=== PATIENT | female | born 1990 | race Caucasian/White ===

== ENCOUNTER → 2020-01-24 15:48 | Outpatient (CLI) | payer OTHER, SELFPAY ==
[2020-01-26 11:11] LABS: FSH 5.8 mIU/mL (.); LH 6.9 mIU/mL (.); Prolactin 11.3 ng/mL (4.8-23.3)
== END ==
PROVIDERS: Visit Provider Obstetrics & Gynecology
DX: N64.52 Nipple discharge (principal)
CPT/HCPCS: 36415; 83001; 83002; 84146; 84443

== ENCOUNTER → 2020-01-29 14:56 | Outpatient (CLI) | payer OTHER, SELFPAY ==
--- NOTE | 2020-01-29 14:56 | US_ITS ---
PROCEDURE: US BREAST RT COMPLETE CLINICAL INDICATION: US right breast-nipple discharge, yellowish in color COMPARISON: None FINDINGS: Targeted scanning in the circumareolar region around the nipple shows no abnormal dilated ducts or suspicious cystic or solid mass or evidence of architectural distortion. There couple normal appearing nodes in the axilla. IMPRESSION: Unremarkable targeted ultrasound right breast Dictated by: Dr. Pablo Guzman MD 02/01/2020 12:[address] Pablo Guzman MD in [place] 02/01/2020 12:25
== END ==
PROVIDERS: PCP Emergency Medicine; Visit Provider Obstetrics & Gynecology
DX: N64.52 Nipple discharge (principal)
CPT/HCPCS: 76641

== ENCOUNTER 2020-03-20 17:22 | Emergency (ER) | payer OTHER, SELFPAY ==
[2020-03-20 17:43] VITALS: BP 137/89; PULSE 87; RESP 16; TEMP 37.2; O2SAT 97; BMI 38.2
[2020-03-20 17:48] LABS: Color,Urine Dark Yellow (Yellow)
[2020-03-20 17:49] LABS: Apearance,Urine Cloudy (Clear)
[2020-03-20 17:50] LABS: Glucose,Urine (UA) Negative (Negative); Ketones,Urine Negative (Negative); Protein,Urine 2+ (Negative)
[2020-03-20 17:51] LABS: Bilirubin,Urine Negative (Negative); Blood, Urine 2+ (Negative); UTC Leukocyte Esterase,Urine 3+ (Negative); UTC Nitrate,Urine Positive (Negative); Urobilinogen,Urine 0.2 EU/dl (0.2)
--- NOTE | 2020-03-20 17:54 | HMH.EDUTC ---
[facility] [place] Disposition Clinical Impression: UTI (urinary tract infection) Qualifiers: Urinary tract infection type: site unspecified Hematuria presence: with hematuria Qualified Code(s): N39.0 - Urinary tract infection, site not specified Disposition: Home, Self-Care Condition on Discharge: Good Instructions: Urinary Tract Infection, DI for Urinary Tract Infection (UTI) Additional Instructions: Drink plenty of fluids. Take tylenol or ibuprofen for pain or fever. Take the medications as directed. Follow up with your regular doctor. GO TO THE ER FOR ANY WORSENING SYMPTOMS The pyridium will make your urine turn orange, this is an expected side effect. It will stain your clothes if it comes into contact with them. Prescriptions: Ondansetron [Zofran 4mg ODT] 4 mg PO Q8HP PRN #10 tab.rapdis PRN Reason: Nausea [facility] Sulfamethoxazole/Trimethoprim [Bactrim DS tablet] 1 each PO BID 7 Days #14 tab Transmission Status: Received by [facility] Fluconazole [Diflucan 150mg tab] 150 mg PO ONCE #1 tab Transmission Status: Received by [facility] Phenazopyridine HCl [Pyridium 200mg Tablet] 200 pow PO TID #6 tab Transmission Status: Received by [facility] Referrals: Sabino Ngo MD [Primary Care Provider] - Forms: Work/School Release Time of Disposition: 18:01 Medical Decision Making - Medical Records Medical records reviewed: No: I reviewed the patient's medical records. - Lyndon Inquiry Pt receiving controlled substance: No Vital Signs: 03/20/20 17:43 03/20/20 18:08 Temperature 98.9 F 98.9 F Temperature Source Oral Pulse Rate 87 Pulse Rate [Right Brachial] 87 Respiratory Rate 16 16 Blood Pressure 137/89 Blood Pressure [Right Arm] 137/89 Blood Pressure Mean [Right Arm] 105 Blood Pressure Source [Right Arm] Automatic Cuff Blood Pressure Position [Right Arm] Sitting 02 Sat by Pulse Oximetry 97 Oxygen Delivery Method Room Air - Lab Data Lab results reviewed: Yes: I reviewed the patient's lab results. Lab Results 03/20/20 17:44: Urine Color Dark yellow, Urine Appearance Cloudy, Urine pH 7.0, Ur Specific [place] 1.020, Urine Protein 2+, Urine Glucose (UA) Negative, Urine Ketones Negative, Urine Blood 2+, Urine Nitrate Positive A, Urine Bilirubin Negative, Urine Urobilinogen 0.2, Ur Leukocyte Esterase 3+ A Orders (Tests/Meds): ORDERS Category Date Time Status Urine Culture Routine Micro 03/20/20 17:[address] [facility] [place] HPI - General Stated complaint: Possible UTI Time Seen by Provider: 03/20/20 17:54 Mode of Arrival: Ambulatory Source of Information: Patient Limitations: No Limitations Description of Symptoms (Recalled from Triage Doc. by RN): PATIENT C/O BURNING WITH URINATION SINCE YESTERDAY HEENT Symptoms (Recalled from RN notes): No Resp Symptoms (Recalled from RN notes): No Skin Symptoms (Recalled from RN notes): No MS Symptoms (Recalled from RN notes): No Functional Status (Recalled from RN notes): WNL - History of Present Illness Provider Complaint: She c/o burning while urinating and low back pain since yesterday. - Related Data Home Medications Medication Instructions Recorded Confirmed buprenorphine 8 mg-naloxone 2 mg SUBLINGUAL 28 Days #28 each 07/31/18 02/22/20 sublingual film etonogestrel 68 mg subdermal SUBDERMAL PRN each 03/22/19 02/22/20 implant Previous Rx's Medication Instructions Recorded levothyroxine 50 mcg tablet 50 mcg PO DAILY #30 tab 02/22/20 Fluconazole [Diflucan 150mg tab] 150 mg PO ONCE #1 tab 03/20/20 Ondansetron [Zofran 4mg ODT] 4 mg PO Q8HP PRN #10 tab.rapdis 03/20/20 Phenazopyridine HCl [Pyridium 200 pow PO TID #6 tab 03/20/20 200mg Tablet] Sulfamethoxazole/Trimethoprim 1 each PO BID 7 Days #14 tab 03/20/20 [Bactrim DS tablet] Allergies Allergy/AdvReac Type Severity Reaction Status Date / Time No Izabela
[2020-03-20 18:08] VITALS: BP 137/89; PULSE 87; RESP 16; TEMP 37.2; O2SAT 97
== END 2020-03-20 18:10 | disposition home or self-care (01) ==
PROVIDERS: Emergency Provider Nurse Practitioner Family; PCP Emergency Medicine
DX: N30.00 Acute cystitis without hematuria (principal); F17.210 Nicotine dependence, cigarettes, uncomplicated; F19.11 Other psychoactive substance abuse, in remission
CPT/HCPCS: 81003; 87086; 87088; 87186; 99201

== ENCOUNTER 2020-06-22 12:01 | Emergency (ER) | payer OTHER, SELFPAY ==
[2020-06-22 12:05] VITALS: BP 133/82; PULSE 85; RESP 20; TEMP 37.1; O2SAT 99; BMI 34.9
--- NOTE | 2020-06-22 12:31 | HMH.EDUTC ---
[facility] [place] Disposition Clinical Impression: Foot pain, left, Bone spur of foot Disposition: Home, Self-Care Condition on Discharge: Good Instructions: DI for Foot Pain Additional Instructions: follow up with dr lopez call tomorrow for appointment Referrals: Sabino Ngo MD [Primary Care Provider] - Yulissa Chiu DPM [Staff Physician] - Time of Disposition: 13:36 Medical Decision Making - Lyndon Inquiry Pt receiving controlled substance: No Vital Signs: 06/22/20 12:05 Temperature 98.8 F Temperature Source Oral Pulse Rate [Left Brachial] 85 Respiratory Rate 20 Blood Pressure [Left Arm] 133/82 Blood Pressure Mean [Left Arm] 99 Blood Pressure Source [Left Arm] Automatic Cuff Blood Pressure Position [Left Arm] Sitting 02 Sat by Pulse Oximetry 99 Oxygen Delivery Method Room Air Orders (Tests/Meds): ORDERS Category Date Time Status XR foot LT min 3V Stat Exams 06/22/20 12:35 Taken [facility] [place] HPI - General Chief complaint: Urgent Treatment [facility] Stated complaint: knot on left ankle, no accident Time Seen by Provider: 06/22/20 12:31 Mode of Arrival: Ambulatory Source of Information: Patient Limitations: No Limitations Description of Symptoms (Recalled from Triage Doc. by RN): PATIENT STATES SHE HAS HAD LUMPS ON POSTERIOR BILATERAL ANKLES X 1 YEAR. SHE RECENTLY STARTED A NEW JOB AT [employer], AND REPORTS WHEN SHE WOKE UP SHE WAS HAVING PAIN IN BOTH ANKLES (LEFT MORE THAN RIGHT). STATES IT HURTS WITH EXTENTION WHILE WALKING HEENT Symptoms (Recalled from RN notes): No Resp Symptoms (Recalled from RN notes): No Skin Symptoms (Recalled from RN notes): No MS Symptoms (Recalled from RN notes): Yes Functional Status (Recalled from RN notes): WNL - History of Present Illness Provider Complaint: 29 yr old female presents for pain in the back of left foot. pt states she has had these knots and cary ankle pain for over one year but after walking at work last night they became painful. - Related Data Home Medications Medication Instructions Recorded Confirmed buprenorphine 8 mg-naloxone 2 mg 1 film SUBLINGUAL DAILY 28 Days 07/31/18 06/22/20 sublingual film #28 each Allergies Allergy/AdvReac Type Severity Reaction Status Date / Time No Known Allergies Allergy Verified 02/22/20 10:31 - Worker's Comp Is this a Worker's Comp case?: No [facility] History - Hepatitis A Screen Drug use history?: No High risk sexual behaviors?: No History of sexually transmitted infection?: No Currently employed?: No Childcare worker?: No Do you have indoor plumbing?: Yes Do you have electricity?: Yes Attestation statement:: This patient has been screened for Hepatitis A risk factors. I have reviewed the patient's past medical history: Yes Comment: NEXPLANON Other Surgeries: Yes: Other Amputation: No Fractures: No Comment: 2013- D&E. blocked milk duct, 2005 - Social History Smoking Status: Current every day smoker Tobacco Type: cigarettes # Packs/Day (cigarettes): 1 Alcohol Intake: never Substance Use Type: former substance user, opiates, heroin, amphetamines, prescription drug, crack/cocaine Occupational Status: other Housing: house Household Members: family Family Hx:: Coronary Artery Disease, Cancer ROS Obtained: Yes Systems reviewed as appropriate & no additional complaints - Constitutional Constitutional: Reports system reviewed and no additional complaints, except as docu, Denies fever(s) - Eyes Eyes: Reports system reviewed and no additional complaints, except as docu - ENT Ears, Nose, Mouth, and Throat: Reports system reviewed and no additional complaints, except as docu - Cardiovascular Cardiovascular: Reports system reviewed and no additional complaints, except as docu - Respiratory Respiratory: Yes system reviewed and no additional complaints, except as docu - Gastrointestinal Gastrointestingal: Reports: system reviewed and no additional complaints, except as docu - Genitourinar
--- NOTE | 2020-06-22 12:35 | XR_ITS ---
PROCEDURE: XR FOOT LT MIN 3V CLINICAL INDICATION: knot on heel Knot on left foot and left heel COMPARISON: No exams were available for comparison FINDINGS: No fracture or dislocation. No lytic or blastic change. There is normal mineralization. The joint spaces are well-preserved. No significant degenerative/arthritic changes. No erosive changes evident. Other findings:There is a small calcaneal spur and an Achilles enthesophyte. There may be some soft tissue swelling at the heel pad. IMPRESSION: Questionable soft tissue swelling at the heel pad. Small calcaneal spur Dictated by: Chan Munoz MD 06/23/2020 05:39 Chan Munoz MD in [place] 06/23/2020 05:39
[2020-06-22 13:47] VITALS: BP 133/82; PULSE 85; RESP 20; TEMP 37.1; O2SAT 99
== END 2020-06-22 13:51 | disposition home or self-care (01) ==
PROVIDERS: Emergency Provider Nurse Practitioner Family; PCP Emergency Medicine
DX: M77.52 Other enthesopathy of left foot and ankle (principal); F17.210 Nicotine dependence, cigarettes, uncomplicated; F11.11 Opioid abuse, in remission
CPT/HCPCS: 73630; 99201

== ENCOUNTER → 2020-08-07 14:56 | Outpatient (CLI) | payer OTHER, SELFPAY ==
--- NOTE | 2020-08-07 15:02 | XR_ITS ---
PROCEDURE: XR FOOT WT BEARING RT 3V CLINICAL INDICATION: foot pain COMPARISON: CR XR FOOT LT MIN 3V from 06/22/2020 FINDINGS: No fracture or dislocation. No lytic or blastic change. There is normal mineralization. Prominent enthesophyte noted at the Achilles insertion with some faint soft tissue calcification at this region. Spurring is present along the posterior and distal aspect of the tibia. Other findings:None. IMPRESSION: Prominent Achilles enthesophyte Spurring along the posterior distal tibia Dictated by: Chan Munoz MD 08/07/2020 15:14 Chan Munoz MD in [place] 08/07/2020 15:14
== END ==
PROVIDERS: PCP Emergency Medicine; Visit Provider Nurse Practitioner
DX: M79.673 Pain in unspecified foot (principal)
CPT/HCPCS: 73630

== ENCOUNTER 2020-11-13 14:03 | Emergency (ER) | payer OTHER, SELFPAY ==
[2020-11-13 14:19] VITALS: BP 123/86; PULSE 91; RESP 20; TEMP 37.1; O2SAT 100; BMI 38.0
--- NOTE | 2020-11-13 14:34 | HMH.EDUTC ---
[facility] [place] Clinical Impression: Strep throat Disposition: Home, Self-Care Condition on Discharge: Good Instructions: Strep Throat, DI for Strep Throat Additional Instructions: Drink plenty of fluids. Take tylenol or ibuprofen for pain or fever. Take the medications as directed. Follow up with your regular doctor. GO TO THE ER FOR ANY WORSENING SYMPTOMS Prescriptions: Amoxicillin/Potassium Clav [Augmentin 875-125 Tablet] 1 tab PO Q12H 10 Days #20 tab Transmission Status: [facility] predniSONE [Prednisone 20mg Tab] 20 mg PO BID 4 Days #8 tab Transmission Status: Received by [facility] Benzonatate [Tessalon Perle 100mg Cap] 100 mg PO TIDP PRN #30 cap PRN Reason: Cough Transmission Status: [facility] Referrals: Sabino Ngo MD [Primary Care Provider] - Forms: Work/School Release Time of Disposition: 14:56 Medical Decision Making - Medical Records Medical records reviewed: No: I reviewed the patient's medical records. - Lyndon Inquiry Pt receiving controlled substance: No Vital Signs: 11/13/20 14:19 11/13/20 15:01 Temperature 98.8 F 98 F Temperature Source Oral Pulse Rate 72 Pulse Rate [Right] 91 H Respiratory Rate 20 16 Blood Pressure 145/89 H Blood Pressure [Right Arm] 123/86 Blood Pressure Mean [Right Arm] 98 Blood Pressure Source [Right Arm] Automatic Cuff 02 Sat by Pulse Oximetry 100 Oxygen Delivery Method Room Air [facility] [place] HPI - General Stated complaint: sore throat,ear pain,cough Time Seen by Provider: 11/13/20 14:34 Mode of Arrival: Ambulatory Source of Information: Patient Limitations: No Limitations Description of Symptoms (Recalled from Triage Doc. by RN): PT THINKS SHE HAS BILATERAL EAR INFECTIONS WITH THE LEFT BEING THE WORST. PT ALSO C/O COUGH AND CONGESTION SINCE TUESDAY. HEENT Symptoms (Recalled from RN notes): Yes (BILATERAL EAR PAIN) Resp Symptoms (Recalled from RN notes): Yes (COUGH AND CONGESTION) Skin Symptoms (Recalled from RN notes): No MS Symptoms (Recalled from RN notes): No Functional Status (Recalled from RN notes): NA - History of Present Illness Provider Complaint: She c/o bilateral ear pain for the past 3 days. - Related Data Home Medications Medication Instructions Recorded Confirmed buprenorphine 8 mg-naloxone 2 mg 1 film SUBLINGUAL DAILY 28 Days 07/31/18 09/18/20 sublingual film #28 each etonogestrel 68 mg subdermal SUBDERMAL 06/26/20 09/18/20 implant Previous Rx's Medication Instructions Recorded meloxicam 7.5 mg tablet 7.5 mg PO DAILY 30 Days #30 tab 06/27/20 diclofenac sodium 1 % topical gel 4 g TOPICAL QID PRN 30 Days #100 g 08/07/20 Amoxicillin/Potassium Clav 1 tab PO Q12H 10 Days #20 tab 11/13/20 [Augmentin 875-125 Tablet] Benzonatate [Tessalon Perle 100mg 100 mg PO TIDP PRN #30 cap 11/13/20 Cap] predniSONE [Prednisone 20mg 20 mg PO BID 4 Days #8 tab 11/13/20 Tab] Allergies Allergy/AdvReac Type Severity Reaction Status Date / Time No Known Allergies Allergy Verified 11/13/20 14:19 - Worker's Comp Is this a Worker's Comp case?: No [facility] History - Hepatitis A Screen Drug use history?: No High risk sexual behaviors?: No History of sexually transmitted infection?: No Currently employed?: No Childcare worker?: No Do you have indoor plumbing?: Yes Do you have electricity?: Yes Attestation statement:: This patient has been screened for Hepatitis A risk factors. I have reviewed the patient's past medical history: Yes Other Medical History: Reports: Thyroid Disease Comment: NEXPLANON Other Surgeries: Yes: Other Amputation: No Fractures: No Comment: 2013- D&E. blocked milk duct, 2005 - Social History Smoking Status: Current every day smoker Tobacco Type: cigarettes # Packs/Day (cigarettes): 1 Alcohol Intake: never Substance Use Type: former substance user, opiates, heroin, amphetamines, pre
[2020-11-13 15:01] VITALS: BP 145/89; PULSE 72; RESP 16; TEMP 36.6
== END 2020-11-13 15:04 | disposition home or self-care (01) ==
PROVIDERS: Emergency Provider Nurse Practitioner Family; PCP Emergency Medicine
DX: J02.0 Streptococcal pharyngitis (principal); E03.9 Hypothyroidism, unspecified
CPT/HCPCS: 99202; G0463

== ENCOUNTER 2021-02-24 16:22 | Emergency (ER) | payer OTHER, SELFPAY ==
[2021-02-24 16:23] VITALS: BP 124/67; PULSE 87; RESP 20; TEMP 37.2; O2SAT 99; BMI 39.9
[2021-02-24 17:16] LABS: Basophils # 0.1 K/mm3 (0-0.2); Basophils % 0.5 % (0.1-2.0); Eosinophils # 0.2 K/mm3 (0.0-0.4); Hematocrit 45.4 % (37.0-47.0); Hemoglobin 15.2 g/dL (12.2-16.2); Lymphocytes # 0.8 K/mm3 (0.7-4.5); Lymphocytes % 4.9 % (10-50); Mean Corpuscular HGB Conc 33.4 g/dL (31.8-35.4); Mean Corpuscular Hemoglobin 30.5 pg (27.0-31.2); Mean Corpuscular Volume 91.5 fl (81-99); Mean Platelet Volume 7.9 fl (7.4-10.4); Monocytes # 0.4 K/mm3 (0.1-1.0); Monocytes % 2.3 % (1.7-9.3); Neutrophils # 14.4 K/mm3 (1.8-7.8); Neutrophils % 91.3 % (37.0-80.0); Platelet Count 299 K/mm3 (142-424); Red Blood Count 4.97 M/mm3 (4.20-5.40); Red Cell Distribution Width 13.9 % (11.5-17.5); White Blood Count 15.7 K/mm3 (4.8-10.8)
[2021-02-24 17:20] LABS: MANUAL DIFFERENTIAL MANUAL DIFFERENTIAL (MANUAL DIFF)
--- NOTE | 2021-02-24 17:20 | HMH.EDGENADL ---
ED Disposition Clinical Impression: Rectal bleed, Acute anal fissure Disposition: Home, Self-Care Condition on Discharge: Good Instructions: DI for Diarrhea and Traveler's Diarrhea -- Adult, DI for Diarrhea and Traveler's Diarrhea -- Child, DI for Nausea -- Adult, DI for Nausea -- Child Additional Instructions: multiple sitz bath. stay on clear liquid diet for 24 hours. Referrals: Sabino Ngo MD [Primary Care Provider] - - Critical Care Critical Care Time: No Attestation: On 02/24/21, the high probability of a clinically significant, sudden or life threatening deterioration of the following system(s) required my full and direct attention, intervention and personal management. The time I documented below is in addition to time spent performing reported procedures but includes the following listed in this critical care notation. Medical Decision Making - Medical Records MR Comment: abdominal exam was benign. normal labs. - Lyndon Inquiry Pt receiving controlled substance: No Lyndon was queried for this patient: No Vital Signs: 02/24/21 16:23 Temperature 98.9 F Temperature Source Oral Pulse Rate [Right] 87 Respiratory Rate 20 Blood Pressure [Right Arm] 124/67 Blood Pressure Mean [Right Arm] 86 Blood Pressure Source [Right Arm] Automatic Cuff 02 Sat by Pulse Oximetry 99 - Lab Data Lab Results 02/24/21 16:45: WBC 15.7 H, RBC 4.97, Hgb 15.2, Hct 45.4, MCV 91.5, MCH 30.5, MCHC 33.4, RDW 13.9, Plt Count 299, MPV 7.9, Neut % (Auto) 91.3 H, Lymph % (Auto) 4.9 L, [place] % (Auto) 2.3, Eos % (Auto) 1.0, Baso % (Auto) 0.5, Neut # (Auto) 14.4 H, Lymph # (Auto) 0.8, [place] # (Auto) 0.4, Eos # (Auto) 0.2, Baso # (Auto) 0.1, Total Counted 100, Neutrophils % (Manual) 87 H, Lymphocytes % (Manual) 10, Monocytes % (Manual) 3, Platelet Estimate Normal, RBC Morphology Normal 02/24/21 16:45: Sodium 138, Potassium 4.6, Chloride 108 H, Carbon Dioxide 22, Anion Gap 12.6, BUN 14, Creatinine 0.60, Estimated Creat Clear 233, Estimated GFR 117, Est GFR ( Amer) 141, Glucose 136 H, Calcium 8.9, Total Bilirubin 0.6, AST 35, ALT 24, Alkaline Phosphatase 67, Total Protein 7.2, Albumin 4.3, Globulin 2.9, Albumin/Globulin Ratio 1.5 02/24/21 16:45: Lactate 1.5 Result diagrams: 02/24/21 16:45 02/24/21 16:45 Orders (Tests/Meds): ED MEDICATIONS Discontinued Medications Generic Name Dose Route Start Last Admin Trade Name Jada PRN Reason Stop Dose Admin Sodium Chloride 1,000 mls @ 999 mls/hr 02/24/21 16:45 02/24/21 17:01 Sod Chlor 0.9% 1000ml Bag IV 02/24/21 17:45 999 mls/hr .Q1H1M DEONNA Administration Ondansetron HCl 4 mg 02/24/21 16:38 02/24/21 17:01 Ondansetron 4mg/2ml Vial IV 02/24/21 16:39 4 mg ONCE ONE Administration ORDERS Category Date Time Status Beta HCG, Qual [HCG Qualitative, Serum] Stat Lab 02/24/21 16:39 Ordered General Adult HPI - General Chief complaint: Nausea/Vomiting/Diarrhea Stated complaint: severe stomach pain, v/d Time Seen by Provider: 02/24/21 17:20 Mode of Arrival: Ambulatory Limitations: No Limitations Description of Symptoms (Recalled from ER Triage Doc. by RN): patient states that since 0500 patient woke up with vomiting and diarrhea. patient states that it has not subsided all day, and now there is blood in her diarrhea. - History of Present Illness HPI narrative: 30 year old female, noticed some blood in the stool after several episodes of diarrhea. also feels weak. not taking any meds. never had any surgeries. no fever. no nausea. had diarrhea for the past three days few times daily till today, noticed bright red blood per rectum. - Related Data Home Medications Medication Instructions Recorded Confirmed buprenorphine 8 mg-naloxone 2 mg 1 film SUBLINGUAL DAILY 28 Days 07/31/18 09/18/20 sublingual film #28 each etonogestrel 68 mg subdermal SUBDERMAL 06/26/20 09/18/20 implant Previous Rx's Medication Instructions Recorded meloxicam 7
[2021-02-24 17:26] LABS: Chloride 108 mmol/L (98-107); Sodium 138 mmol/L (136-145)
[2021-02-24 17:27] LABS: Potassium 4.6 mmoL/L (3.5-5.1)
[2021-02-24 17:29] LABS: Alanine Aminotransferase 24 U/L (12-78); Albumin Level 4.3 g/dl (3.5-5.0); Albumin/Globulin Ratio 1.5 (1.1-1.8); Alkaline Phosphatase 67 U/L (38-126); Anion Gap 12.6 mEq/L (5-15); Aspartate Amino Transferase 35 U/L (14-36); Bilirubin,Total 0.6 mg/dl (0.2-1.3); Blood Urea Nitrogen 14 mg/dl (7-17); Calcium 8.9 mg/dl (8.4-10.2); Carbon Dioxide 22 mmol/L (22.0-30.0); Creatinine Clearance Estimated 233 mL/min (50-200); Estimated Glomerular Filt Rate 117 ml/min (>60); GFR (African American) 141 ML/MIN (>60); Globulin 2.9 g/dL (1.3-3.2); Glucose 136 mg/dl (74-100); Total Protein,Serum 7.2 g/dl (6.3-8.2)
[2021-02-24 17:30] LABS: Lactic Acid 1.5 mmol/L (0.7-2.1)
[2021-02-24 17:43] LABS: Lymphocytes % 10 % (10-50); Monocytes % 3 % (2-9); Neutrophils % 87 % (42-76); Platelet Estimate Normal; RBC Morphology Normal; Total Cells Counted 100
[2021-02-24 17:45] VITALS: BP 129/62; PULSE 73; PULSE 76; RESP 18; TEMP 36.7; O2SAT 97; O2SAT 98
--- NOTE | 2021-02-24 17:55 | PC.NURSE ---
assisted MD in bedside rectal exam.
== END 2021-02-24 18:00 | disposition home or self-care (01) ==
PROVIDERS: Emergency Provider Internal Medicine; PCP Emergency Medicine
DX: K62.5 Hemorrhage of anus and rectum (principal); K60.2 Anal fissure, unspecified; F17.210 Nicotine dependence, cigarettes, uncomplicated
CPT/HCPCS: 80053; 83605; 85007; 85025; 96365; 99282; J2405

== ENCOUNTER → 2021-08-03 11:33 | Outpatient (CLI) | payer OTHER, SELFPAY | PROVIDERS: PCP Emergency Medicine; Visit Provider Nurse Practitioner | DX: Z20.822 Contact with and (suspected) exposure to COVID-19 (principal) | CPT/HCPCS: C9803; U0003; U0005 ==

== ENCOUNTER → 2021-08-13 10:06 | Outpatient (CLI) | payer OTHER, SELFPAY ==
[2021-08-14 12:51] LABS: Covid-19 Nasal PCR Sendout Lex POSITIVE
== END ==
PROVIDERS: Visit Provider Nurse Practitioner
DX: U07.1 COVID-19 (principal)
CPT/HCPCS: C9803; U0004; U0005

== ENCOUNTER 2022-07-16 18:27 | Emergency (ER) | payer OTHER, SELFPAY ==
[2022-07-16 19:42] VITALS: BP 133/73; PULSE 83; RESP 17; TEMP 36.9; O2SAT 100; BMI 36.6
--- NOTE | 2022-07-16 19:56 | EXP.UTC ---
Discharge Plan Disposition Patient Disposition: Home, Self-Care Condition: Good Prescriptions Prescriptions: New amoxicillin 875 mg tablet 875 mg PO Q12H Qty: 20 0RF fluticasone propionate [Flonase Allergy Relief] 50 mcg/actuation spray,suspension 1 spray intranasal DAILY Qty: 16 0RF Rx Instructions: administer into each nostril methylprednisolone [Medrol (Héctor)] 4 mg tablets,dose pack See Rx Instructions .Route .COMPLEX 6 Days Qty: 21 0RF Rx Instructions: taper pack; No Action Nexplanon 68 mg implant SUBDERMAL buprenorphine-naloxone 2-0.5 mg tablet, sublingual 2 tab SUBLINGUAL DAILY Referrals Follow up/Referrals: Sabino Ngo MD [Primary Care Provider] - See instructions Activity Restrictions/Add. Instructions Additional Instructions/Restrictions: *Monitor Temp, Over the counter Motrin or Tylenol as directed/as needed Tylenol every 4 hours and Motrin every 6 hours (as long as your family doctor has told you that you can take it) for fever or pain. and straight to ER if unable to lower temp less than 101.0 after medication given *Warm salt water gargles may help to soothe the throat *Throat Lozenges? *Warm fluids like tea with honey may help to soothe the throat? *Sleep elevated *Humidifier/Vaporizer *Flonase 2 sprays in each nostril daily but be aware that it may take 2-3 days before you notice improvement Take medication as prescribed Follow up IMMEDIATELY for new or worsening symptoms or no Noticeable improvement over the next 48-72 hours. 911 for difficulty breathing or swallowing Clinical Impressions Clinical Impression: Otitis media Qualifiers: Otitis media type: unspecified Laterality: bilateral Qualified Code(s): H66.93 - Otitis media, unspecified, bilateral Instructions Patient Instructions: Middle Ear Infection, Amoxicillin Discharge ED Provider: Lisa Wood [facility] General Stated complaint: earache Mode of Arrival: Ambulatory Source of Information: Patient Limitations: No Limitations Time Seen by Provider: 07/16/22 19:56 Description of Symptoms (Recalled from Triage Doc. by RN): pt comes in with c/o right ear pain ongoing for 2-3 days HEENT Symptoms (Recalled from RN notes): Yes Resp Symptoms (Recalled from RN notes): No Skin Symptoms (Recalled from RN notes): No MS Symptoms (Recalled from RN notes): No Functional Status (Recalled from RN notes): n/a History of Present Illness Provider Complaint: Patient states that she has been having sinus congestion and pressure along with pain in both ears but pain worse in right States that it has continued to get worse over the last couple days so tonight she came in Related Data Home Medications Medication Instructions Recorded Confirmed etonogestrel 68 mg subdermal subdermal 06/26/20 04/17/21 implant (Nexplanon) buprenorphine 2 mg-naloxone 0.5 mg 2 tab sublingual DAILY addiction 04/04/21 07/16/22 sublingual tablet Previous Rx's Medication Instructions Recorded amoxicillin 875 mg tablet 875 mg PO Q12H #20 tabs 07/16/22 fluticasone propionate 50 1 spray intranasal DAILY #16 grams 07/16/22 mcg/actuation nasal spray,suspension (Flonase Allergy Relief) methylprednisolone 4 mg tablets in See Rx Instructions .Route 07/16/22 a dose pack (Medrol (Héctor)) .COMPLEX 6 days #21 tabs Allergies Allergy/AdvReac Type Severity Reaction Status Date / Time No Known Allergies Allergy Verified 07/16/22 19:45 Worker's Comp Is this a Worker's Comp case?: No [facility] Disclaimer: The information contained in this section may have been updated after the patient was seen, as this information can be updated by other users. Social History Smoking Status: Current every day smoker tobacco type: cigarettes packs per day: 1 alcohol intake: never substance use type: former substance user, crack/cocaine, heroin, amphetamines, opiates and prescription drug curren
[2022-07-16 20:06] LABS: UTC Pregnancy Test, Urine Negative (Negative)
[2022-07-16 20:08] VITALS: BP 133/73; PULSE 83; RESP 17; TEMP 36.9
== END 2022-07-16 20:14 | disposition home or self-care (01) ==
PROVIDERS: Emergency Provider Nurse Practitioner; PCP Emergency Medicine
DX: H66.93 Otitis media, unspecified, bilateral (principal)
CPT/HCPCS: 81025; 99212; G0463

== ENCOUNTER 2022-08-10 17:06 | Emergency (ER) | payer OTHER, SELFPAY ==
--- NOTE | 2022-08-10 17:46 | EXP.UTC ---
Discharge Plan Disposition Patient Disposition: Home, Self-Care Condition: Good Prescriptions Prescriptions: New phenazopyridine [Pyridium] 200 mg tablet 200 mg PO Q8H 2 Days Qty: 6 0RF ciprofloxacin HCl [Cipro] 500 mg tablet 500 mg PO BID 7 Days Qty: 14 0RF ondansetron 4 mg Tablet,Disintegrating 4 mg PO Q8H PRN (Reason: Nausea) Qty: 9 0RF No Action Nexplanon 68 mg implant SUBDERMAL buprenorphine-naloxone 2-0.5 mg tablet, sublingual 2 tab SUBLINGUAL DAILY Referrals Follow up/Referrals: Sabino Ngo MD [Primary Care Provider] - See instructions Activity Restrictions/Add. Instructions Additional Instructions/Restrictions: Drink plenty of fluids. Take tylenol or ibuprofen for pain or fever. Take the medications as directed. Follow up with your regular doctor. GO TO THE ER FOR ANY WORSENING SYMPTOMS The pyridium will make your urine turn orange, this is an expected side effect. It will stain your clothes if it comes into contact with them. We will culture the urine. That will tell what bacteria is causing your infection and which antibiotics will treat it best. Sometimes the first antibiotic we prescribe turns out to not work against different bacteria. So, make sure you follow up within 3 days if you are not getting better. Clinical Impressions Clinical Impression: UTI (urinary tract infection) Stand Alone Forms Stand Alone Forms: Work/School Release Instructions Patient Instructions: DI for Urinary Tract Infection (UTI), Phenazopyridine, Urine Culture Discharge ED Provider: Shad Root [facility] General Stated complaint: POSSIBLE uti Time Seen by Provider: 08/10/22 17:46 History of Present Illness Provider Complaint: She states that for the past 2 days she has had low back pain, dysuria and urinary frequency. Related Data Home Medications Medication Instructions Recorded Confirmed etonogestrel 68 mg subdermal subdermal 06/26/20 04/17/21 implant (Nexplanon) buprenorphine 2 mg-naloxone 0.5 mg 2 tab sublingual DAILY addiction 04/04/21 07/16/22 sublingual tablet Previous Rx's Medication Instructions Recorded ciprofloxacin HCl 500 mg tablet 500 mg PO BID 7 days #14 tabs 08/10/22 (Cipro) ondansetron 4 mg disintegrating 4 mg PO Q8H PRN Nausea #9 tabs 08/10/22 tablet phenazopyridine 200 mg tablet 200 mg PO Q8H 2 days #6 tabs 08/10/22 (Pyridium) Allergies Allergy/AdvReac Type Severity Reaction Status Date / Time No Known Allergies Allergy Verified 08/10/22 18:03 [facility] Disclaimer: The information contained in this section may have been updated after the patient was seen, as this information can be updated by other users. Social History Smoking Status: Current every day smoker tobacco type: cigarettes packs per day: 1 alcohol intake: never substance use type: former substance user, crack/cocaine, heroin, amphetamines, opiates and prescription drug current occupational status: other Travel in the last 8 weeks: None household members: family housing: house ROS Obtained: Yes All systems reviewed & no additional complaints except as documented Constitutional Constitutional: Reports system reviewed and no additional complaints, except as documented, Denies chills and Denies fever(s) Eyes Eyes: Denies eye discharge ENT Ears, Nose, Mouth, and Throat: Denies dysphagia, Denies sore throat and Denies throat swelling Cardiovascular Cardiovascular: Denies chest pain and Denies dyspnea Respiratory Respiratory: Denies chest congestion, Denies cough and Denies dyspnea Gastrointestinal Gastrointestingal: Denies abdominal pain, constipation, diarrhea, dysphagia, nausea or vomiting Genitourinary Female Genitourinary: Reports as per HPI, Reports dysuria, Reports sexual dysfunction, Reports urinary frequency, Denies urinary incontinence and Reports urinary hesitancy
[2022-08-10 17:50] VITALS: RESP 20; TEMP 37; O2SAT 100; BMI 39.9
[2022-08-10 17:57] LABS: Apearance,Urine Cloudy (Clear); Color,Urine Yellow (Yellow); Protein,Urine Negative (Negative)
[2022-08-10 17:58] LABS: Bilirubin,Urine Trace (Negative); Blood, Urine 2+ (Negative); Glucose,Urine (UA) Negative (Negative); Ketones,Urine Negative (Negative); UTC Leukocyte Esterase,Urine 2+ (Negative); UTC Nitrate,Urine Positive (Negative); Urobilinogen,Urine 0.2 EU/dl (0.2)
[2022-08-10 18:43] VITALS: BP 156/95; PULSE 83; RESP 20; TEMP 36.8; O2SAT 99
== END 2022-08-10 18:42 | disposition home or self-care (01) ==
PROVIDERS: Emergency Provider Nurse Practitioner Family; PCP Emergency Medicine
DX: N39.0 Urinary tract infection, site not specified (principal)
CPT/HCPCS: 81003; 87086; 87088; 87186; 99212; 99213; G0463

== ENCOUNTER 2022-09-20 10:26 | Emergency (ER) | payer OTHER, SELFPAY ==
[2022-09-20 10:45] VITALS: BP 139/77; PULSE 87; RESP 20; TEMP 36.9; O2SAT 100; BMI 39.9
--- NOTE | 2022-09-20 11:12 | EXP.UTC ---
Discharge Plan Disposition Patient Disposition: Home, Self-Care Condition: Good Prescriptions Prescriptions: New amoxicillin-pot clavulanate 875-125 mg Tablet 1 tab PO Q12H Qty: 20 0RF No Action Nexplanon 68 mg implant 1 implant SUBDERMAL DAILY buprenorphine-naloxone 2-0.5 mg tablet, sublingual 2 tab SUBLINGUAL DAILY Referrals Follow up/Referrals: Sabino Ngo MD [Primary Care Provider] - See instructions Activity Restrictions/Add. Instructions Additional Instructions/Restrictions: *Monitor Temp, Over the counter Motrin or Tylenol as directed/as needed Tylenol every 4 hours and Motrin every 6 hours (as long as your family doctor has told you that you can take it) for fever or pain. and straight to ER if unable to lower temp less than 101.0 after medication given Take medication as prescribed *Humidifier/Vaporizer *Flonase 2 sprays in each nostril daily but be aware that it may take 2-3 days before you notice improvement Follow up IMMEDIATELY for new or worsening symptoms or no Noticeable improvement over the next 48-72 hours. 911 for difficulty breathing or swallowing Clinical Impressions Clinical Impression: Otitis media Instructions Patient Instructions: Middle Ear Infection, DI for Ear Pain-Adult Discharge ED Provider: Lisa Wood [facility] [place] Stated complaint: Left Ear pain Mode of Arrival: Ambulatory Source of Information: Patient Limitations: No Limitations Time Seen by Provider: 09/20/22 11:12 Description of Symptoms (Recalled from Triage Doc. by RN): severe ear pain left and is turning into jaw pain. Had ear infection 2-3 weeks ago HEENT Symptoms (Recalled from RN notes): Yes Resp Symptoms (Recalled from RN notes): No Skin Symptoms (Recalled from RN notes): No MS Symptoms (Recalled from RN notes): No Functional Status (Recalled from RN notes): n/a History of Present Illness Provider Complaint: Patient states that she has been having pain in her left ear and hurts when she moves or opens her mouth State that she had an ear infection about 3 weeks ago and was on medication for it but now it is back and not sure if it never cleared up or just has another infection Related Data Home Medications Medication Instructions Recorded Confirmed etonogestrel 68 mg subdermal 1 implant subdermal DAILY . 06/26/20 09/20/22 implant (Nexplanon) buprenorphine 2 mg-naloxone 0.5 mg 2 tab sublingual DAILY addiction 04/04/21 09/20/22 sublingual tablet Previous Rx's Medication Instructions Recorded amoxicillin 875 mg-potassium 1 tab PO Q12H #20 tabs 09/20/22 clavulanate 125 mg tablet Allergies Allergy/AdvReac Type Severity Reaction Status Date / Time No Known Allergies Allergy Verified 09/20/22 10:59 Worker's Comp Is this a Worker's Comp case?: No PFSH PFS Disclaimer: The information contained in this section may have been updated after the patient was seen, as this information can be updated by other users. Social History Smoking Status: Current every day smoker tobacco type: cigarettes packs per day: 1 alcohol intake: never substance use type: former substance user, crack/cocaine, heroin, amphetamines, opiates and prescription drug current occupational status: other Travel in the last 8 weeks: None household members: family housing: house ROS Obtained: Yes All systems reviewed & no additional complaints except as documented and Yes Systems reviewed as appropriate & no additional complaints except as documented Constitutional Constitutional: Reports system reviewed and no additional complaints, except as documented and Reports as per HPI ENT Ears, Nose, Mouth, and Throat: Reports system reviewed and no additional complaints, except as documented, Reports as per HPI and Reports otalgia Cardiovascular Cardiovascular: Reports system reviewed and no additional complaints, except as documented and
[2022-09-20 11:35] VITALS: BP 139/77; PULSE 87; RESP 20; TEMP 36.9; O2SAT 100
== END 2022-09-20 11:34 | disposition home or self-care (01) ==
PROVIDERS: Emergency Provider Nurse Practitioner; PCP Emergency Medicine
DX: H66.90 Otitis media, unspecified, unspecified ear (principal)
CPT/HCPCS: 99212; 99213; G0463

== ENCOUNTER 2023-09-23 17:50 | Outpatient (CLI) | payer BC, SELFPAY ==
[2023-09-23 19:07] LABS: Barbiturates Screen,Urine Negative ng/ml (<200)
[2023-09-23 19:08] LABS: Amphetamine/Metha Screen,Urine Negative ng/ml (<1000); Benzodiazepines Screen,Urine Negative ng/ml (<200)
[2023-09-23 19:09] LABS: Cannabinoid Screen,Urine Negative ng/ml (<50)
[2023-09-23 19:10] LABS: Cocaine Screen,Urine Negative ng/ml (<300); Methadone Screen,Urine Negative ng/ml (<300)
[2023-09-23 19:11] LABS: Opiate Screen,Urine Negative ng/ml (<300); Phencyclidine Screen,Urine Negative ng/ml (<25)
== END 2023-09-23 23:59 ==
LOC: LAB 17:59
DX: F90.2 Attention-deficit hyperactivity disorder, combined type (principal)
CPT/HCPCS: 80307

== ENCOUNTER 2024-04-02 10:03 | Outpatient (CLI) | payer BC, SELFPAY ==
[2024-04-02 19:52] LABS: Alanine Aminotransferase 18 U/L (12-78); Albumin/Globulin Ratio 1.4 (1.1-1.8); Alkaline Phosphatase 59 U/L (38-126); Amylase 44 U/L (30-110); Anion Gap 8.9 mEq/L (5-15); Aspartate Amino Transferase 22 U/L (14-36); Bilirubin,Total 0.5 mg/dl (0.2-1.3); Blood Urea Nitrogen 13 mg/dl (7-17); Calcium 9.6 mg/dl (8.4-10.2); Carbon Dioxide 27 mmol/L (22.0-30.0); Chloride 105 mmol/L (98-107); Chol/HDL Ratio 5.8 (1-3.5); Cholesterol 193 mg/dl (140-200); Estimated Glomerular Filt Rate 96 ml/min (>60); GFR (African American) 116 ML/MIN (>60); Globulin 2.8 g/dL (1.3-3.2); Glucose 95 mg/dl (74-100); HDL Cholesterol 33 mg/dl (40-60); Lipase 41 U/L (23-300); Potassium 3.9 mmoL/L (3.5-5.1); Sodium 137 mmol/L (136-145); Total Protein,Serum 6.8 g/dl (6.3-8.2); Triglycerides 126 mg/dl (30-150); VLDL Cholesterol 25 mg/dL (0-40)
[2024-04-02 20:03] LABS: Direct LDL Cholesterol 130.28 mg/dL (100-129)
[2024-04-02 20:11] LABS: 25-OH Vitamin D, Total 28.1 ng/mL (30-100)
[2024-04-02 20:26] LABS: Thyroid Stimulating Hormone 5.35 uIU/mL (0.465-4.68)
[2024-04-02 20:31] LABS: Basophils # 0.1 K/mm3 (0-0.2); Basophils % 0.8 % (0.1-2.0); Eosinophils # 0.2 K/mm3 (0.0-0.4); Hematocrit 49.8 % (37.0-47.0); Hemoglobin 15.2 g/dL (12.2-16.2); Lymphocytes # 2.8 K/mm3 (0.7-4.5); Lymphocytes % 30.2 % (10-50); Mean Corpuscular HGB Conc 30.6 g/dL (31.8-35.4); Mean Corpuscular Hemoglobin 30.2 pg (27.0-31.2); Mean Corpuscular Volume 98.8 fl (81-99); Mean Platelet Volume 11.5 fl (7.4-10.4); Monocytes # 0.9 K/mm3 (0.1-1.0); Monocytes % 9.4 % (1.7-9.3); Neutrophils # 5.3 K/mm3 (1.8-7.8); Neutrophils % 57.6 % (37.0-80.0); Platelet Count 304 K/mm3 (142-424); Red Blood Count 5.04 M/mm3 (4.20-5.40); Red Cell Distribution Width 14.4 % (11.5-17.5); White Blood Count 9.1 K/mm3 (4.8-10.8)
[2024-04-02 21:55] LABS: HIV (1&2) Antibody Rapid NONREACTIVE (NONREACTIVE)
[2024-04-04 08:21] LABS: HBsAg Screen Negative (Negative); HCV Ab Non Reactive (Non Reactive); Hep A Ab, IGM Negative (Negative); Hep B Core Ab, IgM Negative (Negative)
== END 2024-04-02 23:59 | disposition home or self-care (01) ==
LOC: LAB.DROPOF 04-03 13:22
PROVIDERS: PCP Family Medicine; Visit Provider Family Medicine
DX: H66.92 Otitis media, unspecified, left ear (principal); Z11.4 Encounter for screening for human immunodeficiency virus [HIV]; R10.9 Unspecified abdominal pain; Z72.0 Tobacco use
CPT/HCPCS: 82150; 80050; 80053; 80061; 80074; 82306; 83690; 84443; 85025; 86803; 87389

== ENCOUNTER 2024-04-18 16:38 | Emergency (ER) | payer BC, SELFPAY ==
[2024-04-18 16:51] VITALS: BP 150/77; PULSE 97; RESP 18; TEMP 37; O2SAT 98; BMI 35.3
--- NOTE | 2024-04-18 17:01 | ED_ITS ---
Discharge Plan Disposition Patient Disposition: Home, Self-Care Condition: Good Prescriptions Prescriptions: New benzonatate 100 mg capsule 100 mg PO TID PRN (Reason: cough) Qty: 30 0RF guaifenesin [Mucinex] 600 mg tablet extended release 12hr 1,200 mg PO BID PRN (Reason: cough) Qty: 20 0RF azithromycin [Zithromax Z-Héctor] 250 mg tablet See Rx Instructions .ROUTE .COMPLEX 5 Days Qty: 6 0RF Rx Instructions: For 250 mg dose pack: take 500 mg today (day 1), then 250 mg for 4 days (days 2-5) methylprednisolone [Medrol (Héctor)] 4 mg tablets,dose pack See Rx Instructions .Route .COMPLEX 6 Days Qty: 21 0RF Rx Instructions: taper pack; albuterol sulfate [Proventil HFA] 90 mcg/actuation HFA aerosol inhaler 1 - 2 puff inhalation QID PRN (Reason: shortness of breath or wheezing) Qty: 8.5 0RF No Action Nexplanon 68 mg implant 1 implant SUBDERMAL DAILY dextroamphetamine-amphetamine 25 mg capsule,extended release 24hr 25 mg PO DAILY buprenorphine-naloxone 2-0.5 mg tablet, sublingual 0.5 tab SUBLINGUAL DAILY Referrals Follow up/Referrals: Jessi Herrera APRN [Primary Care Provider] - See instructions Activity Restrictions/Add. Instructions Additional Instructions/Restrictions: * Start antibiotic today. Be sure to complete entire prescription even if feeling better * Monitor temp. Tylenol every 4 hours as needed and / or ibuprofen every 6 hours as needed ( As long as your primary care physician has told you that it ok to take both. For fever/aches/pains ER if no less than 101 despite Tylenol or Motrin * Humidifier/vaporizer or hot steamy shower * Inhaler every 4-6 hours as needed like we discussed. If unsure how to use it, ask pharmacist to demonstrate how. Should help open airways and improve cough, wheezing, and shortness of breath * Mucinex during the day for your cough and cough suppressant only at night. Be sure to drink lots of water. Insurance may not cover a prescriptions for mucinex. Might be cheaper to get 400mg tablets and take 2 tablet in the morning, mid-day and evening with lots of water. *Tessalon Perles will not cause drowsiness but use at bedtime to help stop cough so that you may get some rest. *Start steroid today. Helps with inflammation therefore, cough and wheezing. Follow directions on the package. Reviewed side effects. Patient reports taking them before. Follow up IMMEDIATELY for new or worsening of symptoms OR no noticeable improvement over the next 48-72 hours. 911 immediately for any life threatening symptoms such as chest pain or difficulty breathing Clinical Impressions Clinical Impression: Bronchitis Sinusitis Qualifiers: Sinusitis location: unspecified location Chronicity: unspecified Qualified Code(s): J32.9 - Chronic sinusitis, unspecified Instructions Patient Instructions: DI for Sinusitis, Acute Bronchitis Print Language Print Language: Yi Discharge ED Provider: Lisa Wood [facility] General Stated complaint: congestion,fever,body aches Mode of Arrival: Ambulatory Source of Information: Patient Time Seen by Provider: 04/18/24 17:01 Description of Symptoms (Recalled from Triage Doc. by RN): FLU LIKE S/S, BODY ACHES, CHEST CONGESTION, LOW GRADE FEVER AT HOME CO WORKER HAD COVID A FEW WEEKS AGO HEENT Symptoms (Recalled from RN notes): Yes Resp Symptoms (Recalled from RN notes): Yes Skin Symptoms (Recalled from RN notes): No MS Symptoms (Recalled from RN notes): No Functional Status (Recalled from RN notes): WNL History of Present Illness Provider Complaint: Patient states that she hasnt been feeling well for several days States that she has been having body aches, chills, cough, chest congestion, sinus pain and pressure and low grade fever States that she hasnt been around anyone ill lately that she is aware of was around co worker a couple weeks ago that had COVID Related Data Home Medications ?Medication ?Instructions ?Recorded ?Confirmed etonogestrel 68 mg subdermal 1 implant subdermal DAILY . 06/26/20 04/18/24 implant (Nexplanon) buprenorphine 2 mg-naloxone 0.5 mg 0.5 tab sublingual DAILY 04/18/24 04/18/24 sublingual tablet dextroamphetamine-amphetamine ER 25 mg PO DAILY 04/18/24 04/18/24 25 mg 24hr capsule,extend release Previous Rx's ?Medication ?Instructions ?Recorded albuterol sulfate 90 mcg/actuation 1 - 2 puff inhalation QID PRN 04/18/24 aerosol inhaler (Proventil HFA) shortness of breath or wheezing #8.5 grams azithromycin 250 mg tablet See Rx Instructions PO .COMPLEX 5 04/18/24 (Zithromax Z-Héctor) days #6 tabs benzonatate 100 mg capsule 100 mg PO TID PRN cough #30 caps 04/18/24 guaifenesin 600 mg tablet, 1,200 mg (2 x 600 mg) PO BID PRN 04/18/24 extended release 12 hr (Mucinex) cough #20 tabs methylprednisolone 4 mg tablets in See Rx Instructions .Route 04/18/24 a dose pack (Medrol (Héctor)) .COMPLEX 6 days #21 tabs Allergies Allergy/AdvReac Type Severity Reaction Status Date / Time No Known Allergies Allergy Verified 04/02/24 09:31 Worker's Comp Is this a Worker's Comp case?: [facility] Dis[facility]: The information contained in this section may have been updated after the patient was seen, as this information can be updated by other users. Medical History (Updated 04/18/24 @ 17:16 by Lisa Wood APRN) Nipple discharge in female Achilles tendinitis of left lower extremity Achilles tendinitis of both lower extremities Bilateral foot pain Otitis media Sinusitis Rectal bleed Strep throat Bone spur of foot Foot pain, left UTI (urinary tract infection) Otitis media Social History Smoking Status: Current every day smoker tobacco type: cigarettes packs per day: 1 alcohol intake: never substance use type: former substance user, crack/cocaine, heroin, amphetamines, opiates and prescription drug current occupational status: other Travel in the last 8 weeks: None household members: family housing: house ROS Obtained: Yes All systems reviewed & no additional complaints except as documented and Yes Systems reviewed as appropriate & no additional complaints except as documented Constitutional Constitutional: Reports system reviewed and no additional complaints, except as documented, Reports as per HPI, Reports body ache, Reports chills and Reports fever(s) ENT Ears, Nose, Mouth, and Throat: Reports system reviewed and no additional complaints, except as documented, Reports as per HPI, Reports sinus pain and Reports sinus pressure Cardiovascular Cardiovascular: Reports system reviewed and no additional complaints, except as documented and Reports as per HPI Respiratory Respiratory: Reports system reviewed and no additional complaints, except as documented, Reports as per HPI, Reports chest congestion and Reports cough Gastrointestinal Gastrointestingal: Reports system reviewed and no additional complaints, except as documented and as per HPI Physical Exam General General appearance: alert and in no apparent distress ENT ENT exam: Present mucous membranes moist Expanded ENT Exam Nose exam: Present sinus tenderness Throat exam: Present other (PND noted) Respiratory Respiratory exam: Present normal lung sounds bilaterally; Absent respiratory distress or wheezes Cardiovascular Cardiovascular exam: Present regular rate, normal rhythm and normal heart sounds Neurological Exam Neurological exam: Present alert, oriented X3 and normal gait Medical Decision Making Medical Records Screening: Per USPSTF and CDC recommendations, given the prevalence of disease in our region, it is our hospital?s policy to screen for HIV and viral Hepatitis for all patients aged 18 and over and those with ongoing risk factors. Lyndon Inquiry Pt receiving controlled substance: No Lyndon was queried for this patient: No Vital Signs: 04/18/24 16:51 Temperature 98.6 F Temperature Source Oral Pulse Rate [Left Radial] 97 H Respiratory Rate 18 Blood Pressure [Left Arm] 150/77 H Blood Pressure Mean [Left Arm] 101 02 Sat by Pulse Oximetry 98 Lab Data Lab results reviewed: Yes I reviewed the patient's lab results.
[2024-04-18 17:19] VITALS: BP 150/77; PULSE 97; RESP 18; TEMP 37; O2SAT 98
[2024-04-18 17:21] LABS: UTC Influenza A Antigen Negative (Negative); UTC Influenza B Antigen Negative (Negative)
== END 2024-04-18 17:23 | disposition home or self-care (01) ==
PROVIDERS: Emergency Provider Nurse Practitioner; PCP Family Medicine
DX: J32.9 Chronic sinusitis, unspecified (principal); J40 Bronchitis, not specified as acute or chronic; R09.81 Nasal congestion; R50.9 Fever, unspecified; M79.10 Myalgia, unspecified site
CPT/HCPCS: 87804; 99212; G0381

== ENCOUNTER 2024-05-08 07:26 | Outpatient (CLI) | payer BC, SELFPAY ==
--- NOTE | 2024-05-08 07:27 | US_ITS ---
PROCEDURE INFORMATION: Exam: US Abdomen, Limited; Right Upper Quadrant Exam date and time: 05/08/2024 7:23 AM Age: 33 years old Clinical indication: Abdominal pain; Colic; Additional info: Colicky abd pain n/v TECHNIQUE: Imaging protocol: Real time ultrasound of the abdomen with image documentation. Limited exam focused on the right upper quadrant. Total images: 46 COMPARISON: No relevant prior studies available. FINDINGS: Liver: Normal. No masses. Gallbladder: No evidence of cholelithiasis or cholecystitis. Biliary ducts: Common bile duct is prominent at 8 mm. Pancreas: Pancreas is within normal limits as imaged. Right kidney: Right kidney is within normal limits. IMPRESSION: 1. No evidence of cholelithiasis or cholecystitis. 2. Common bile duct is prominent at 8 mm.
== END 2024-05-08 23:59 | disposition home or self-care (01) ==
PROVIDERS: PCP Family Medicine; Visit Provider Nurse Practitioner Family
DX: R10.84 Generalized abdominal pain (principal); R11.2 Nausea with vomiting, unspecified
CPT/HCPCS: 76705

== ENCOUNTER 2024-05-23 10:18 | Outpatient (CLI) | payer BC, SELFPAY ==
--- NOTE | 2024-05-23 10:19 | NM_ITS ---
FINAL REPORT CLINICAL HISTORY: ABD PAIN, N & V COMPARISON: None FINDINGS: Sequential anterior projection images of the abdomen were obtained after the intravenous injection of 5.33 mCi technetium 99m Choletec. There is normal uptake of radiotracer by the liver. The bile ducts and gallbladder are visualized by 10 minutes. The bowel is not seen by 60 minutes. However, there is visualized bowel after CCK administration. After 1 hour, 2.2 ?g of CCK was injected intravenously for calculation of gallbladder ejection fraction. The gallbladder ejection fraction is 86 %, which is within normal limits. IMPRESSION: No evidence of cystic duct or bile duct obstruction. Normal gallbladder ejection fraction of 86 %. Reviewed, Interpreted and Dictated by Oleg Whaley III, MD Transcribed by Queenie Land Authenticated and [facility]
[2024-05-23] MEDS: SODIUM CHLORIDE 0.9% 10ML SYR (RAD ONLY) 10 ML IV (10:30)
[2024-05-23] MEDS: SINCALIDE 2.2 MCG in 0.9 % SODIUM CHLORIDE 50 ML 100 MCG IV (11:30)
[2024-05-23] MEDS: ISOTOPE CHOLETECH;1 DOSE (UP TO 15 MCI) IV (12:03)
== END 2024-05-23 23:59 | disposition home or self-care (01) ==
LOC: RAD 10:19
PROVIDERS: PCP Family Medicine; Visit Provider Nurse Practitioner Family
DX: R11.2 Nausea with vomiting, unspecified (principal); R10.84 Generalized abdominal pain
CPT/HCPCS: 78227; A9537; J2805

== ENCOUNTER 2024-08-13 09:54 | Day surgery (SDC) | payer BC, SELFPAY ==
[2024-08-07 13:14] VITALS: BMI 34.5
[2024-08-13 10:26] VITALS: BP 130/76; PULSE 87; RESP 18; TEMP 36.9; O2SAT 99
[2024-08-13 10:48] LABS: Urine Pregnancy, HCG Qual. Negative (Negative)
--- NOTE | 2024-08-13 11:11 | EXP.ANES.CKL ---
[facility] Disclaimer: The information contained in this section may have been updated after the patient was seen, as this information can be updated by other users. Medical History Nipple discharge in female Achilles tendinitis of left lower extremity Achilles tendinitis of both lower extremities Bilateral foot pain Otitis media Sinusitis Rectal bleed Strep throat Bone spur of foot Foot pain, left UTI (urinary tract infection) Otitis media Family History Other No significant family history Social History Smoking Status: Current every day smoker tobacco type: cigarettes packs per day: 1 alcohol intake: never substance use type: former substance user, crack/cocaine, heroin, amphetamines, opiates and prescription drug current occupational status: other Travel in the last 8 weeks: None household members: family housing: house caffeine: Yes Have you lived/traveled outside [place] in past 30 days?: No Contact w/someone who lives/traveled outside US past 30 days?: No Exposure to someone with infectious disease in past 14 days?: No Do you have a fever (greater than 100.4 F or 38 C)?: No Have you tested positive for COVID-19: No Exposed to someone with COVID-19 in past 14 days?: No Do you have a sore throat?: No Do you have a cough?: No Do you have any weakness?: No Are you experiencing any nausea/vomitting?: No Do you have any diarrhea?: No Are you experiencing any unusual bleeding?: No Do you have any muscle aches/pain?: No Do you have any abdominal pain?: No Are you experiencing loss of taste or smell?: No [facility] Anesthesia Checklist Patient Identification Patient Identification: Verbal (Name & ) Structural Data Admitted From: Home Planned Operative Procedure/s: egd Consent for Planned Operative Procedure(s) Verified: Yes NPO Status Verified Time NPO: 00:00 Airway Assessment Mallampati Score:: Class II C-Spine Mobility Assessed: Yes TMJ Mobility Assessed: Yes Dentition: Good Dentition Neurological Assessment Level of Consciousness: Awake, Alert and Appropriate Anesthesia Plan Anesthesia Risk discussed: Yes Anesthesia Plan: Verified ASA Class: II Anesthesia Type: MAC
--- NOTE | 2024-08-13 11:53 | EXP.HP ---
History of Present Illness *Admission Date: 08/13/24 *Reason for visit:: Dyspepsia, abdominal pain, nausea and vomiting *History of present illness: Mrs. Mccabe is a 33-year-old female who is here for diagnostic upper endoscopy secondary to dyspepsia with colicky abdominal pain, nausea and vomiting. The examination is deemed medically necessary for diagnostic EGD. The patient has been seen, interviewed and examined prior to the procedure by both myself and the anesthesia provider. [facility] Disclaimer: The information contained in this section may have been updated after the patient was seen, as this information can be updated by other users. Medical History Nipple discharge in female Achilles tendinitis of left lower extremity Achilles tendinitis of both lower extremities Bilateral foot pain Otitis media Sinusitis Rectal bleed Strep throat Bone spur of foot Foot pain, left UTI (urinary tract infection) Otitis media Family History Other No significant family history Social History Smoking Status: Current every day smoker tobacco type: cigarettes packs per day: 1 alcohol intake: never substance use type: former substance user, crack/cocaine, heroin, amphetamines, opiates and prescription drug current occupational status: other Travel in the last 8 weeks: None household members: family housing: house caffeine: Yes Have you lived/traveled outside [place] in past 30 days?: No Contact w/someone who lives/traveled outside [place] past 30 days?: No Exposure to someone with infectious disease in past 14 days?: No Do you have a fever (greater than 100.4 F or 38 C)?: No Have you tested positive for COVID-19: No Exposed to someone with COVID-19 in past 14 days?: No Do you have a sore throat?: No Do you have a cough?: No Do you have any weakness?: No Are you experiencing any nausea/vomitting?: No Do you have any diarrhea?: No Are you experiencing any unusual bleeding?: No Do you have any muscle aches/pain?: No Do you have any abdominal pain?: No Are you experiencing loss of taste or smell?: No Other Medical History Have you received the Flu Vaccine for this season: No Have you received the Pneumonia Vaccine: No Review of Systems Review of Systems Review of systems (narrative): Negative *Cardiovascular Comments: Negative *Gastrointestinal Comments: Negative *Genitourinary Comments: Negative *Musculoskeletal Comments: Negative *Neurologic Comments: Negative Meds Home Medications and Allergies Home Medications ?Medication ?Instructions ?Recorded ?Confirmed ?Type etonogestrel 68 mg subdermal 1 implant subdermal DAILY . 06/26/20 08/13/24 History implant (Nexplanon) albuterol sulfate 90 mcg/actuation 1 - 2 puff inhalation QID PRN 04/18/24 08/07/24 Rx aerosol inhaler (Proventil HFA) shortness of breath or wheezing #8.5 grams buprenorphine 2 mg-naloxone 0.5 mg 0.5 tab sublingual DAILY 04/18/24 08/13/24 History sublingual tablet dextroamphetamine-amphetamine ER 25 mg PO DAILY 04/18/24 08/13/24 History 25 mg 24hr capsule,extend release dicyclomine 10 mg capsule 10 mg PO QID PRN abdominal pain 05/03/24 08/13/24 Rx #30 caps New Prescriptions to Start Prescriptions: Allergies Allergy/AdvReac Type Severity Reaction Status Date / Time No Known Allergies Allergy Verified 08/13/24 10:24 Exam Data for Last 24 hours Vital signs and Labs for Last 24 Hours: Temp Pulse Resp BP Pulse Ox O2 Del Method 98.4 F 87 18 130/76 99 Room Air 08/13/24 10:26 08/13/24 10:26 08/13/24 10:26 08/13/24 10:26 08/13/24 10:08/13/24 10:26 Laboratory Results - last 24 hr 08/13/24 : Urine HCG, Qual Negative *Routine HEENT Exam Head: Present normocephalic Eye: Present EOMI and PERRL ENT: Present mucous membranes moist *Routine Neck Exam Neck: Present supple *Routine Respiratory Exam Respiratory: Present CTA bilaterally *Routine Cardiovascular Exam Cardiovascular: Present RRR *Routine Abdominal Exam Abdominal: Present soft and normoactive bowel sounds; Absent tenderness *Routine Rectal Exam Rectal:: deferred *Routine Genitalia Exam Genitalia:: deferred *Routine Extremities Exam Extremities: Absent cyanosis, clubbing or edema *Routine Skin Exam Skin: Present warm; Absent rash *Routine Neurological Exam Neurological: Present alert and oriented X3 Assessment and Plan *Assessment and plan (1) Nausea & vomiting: Status: Acute Category: Medical Code(s): R11.2 - Nausea with vomiting, unspecified (2) Colicky abdominal pain: Status: Acute Category: Medical Code(s): R10.84 - Generalized abdominal pain (3) Functional dyspepsia: Status: Acute Category: Medical Code(s): K30 - Functional dyspepsia Plan A/P: 1. Colicky abdominal pain, nausea and vomiting is the preprocedural diagnosis. The patient will be anesthetized/sedated using MAC sedation. The patient has been seen and examined. Cardiac and lung assessment prior to the examination is stable. Proceed with planned EGD
[2024-08-13 12:01] VITALS: O2SAT 100
--- NOTE | 2024-08-13 12:03 | P.PCN_ITS ---
[facility] Procedure Note Date: 08/13/24 Time: 12:10 Procedure Note:: Upper Endoscopy Procedure Report: Esophagogastroduodenoscopy with cold biopsies Endoscopost: Justyn Prado II, MD Referring Physician: ZOE Naranjo Date of Procedure: August 13, 2024 Equipment: Olympus GIF 190 standard upper endoscope Sedation: MAC sedation Indications: Ms. Mccabe is a 33-year-old female with intermittent dyspepsia. She reports epigastric/supraumbilical abdominal pain that will occur every other week to once a month and will last the entire day. She does get some bloating and early satiety. In the beginning she had some constipation but this resolved with a stool softener. She reports nausea with this and intermittent vomiting. She did have gallbladder ultrasound and HIDA scan which were normal. She reports no heartburn, reflux, belching or dysphagia. She reports no melena, hematochezia or weight loss. This is her first upper endoscopy. Procedure: Prior to the procedure, a history and physical exam was performed, and patient's medications and allergies were reviewed. The risks, benefits and alternatives of the sedation and procedure were discussed with the patient. All questions were answered and informed consent was obtained. The patient was brought to the procedure room. Patient identification and proposed procedure were verified by the physician and the nurse. The patient was placed in a left lateral decubitus position and the scope was passed under direct vision. Throughout the procedure, the patient's blood pressure, pulse, and oxygen saturations were monitored continuously. The upper GI endoscopy was accomplished without difficulty. The patient tolerated the procedure well. Findings: The scope was passed directly into the upper esophagus and advanced to the third portion of the duodenum. The post bulbar duodenum and duodenal bulb were normal with normal mucosa and conniventes. Cold biopsies were taken from the first and second portion of the duodenum to rule out celiac disease. The scope was withdrawn through a normal duodenal bulb and pylorus into the stomach. There was mild pylorospasm. There was some minimal reactive gastropathy of the prepyloric antrum. There was very mild reticular pattern of the proximal stomach consistent with mild chronic gastritis. Cold biopsies were taken along the lesser curvature to rule out H. pylori. Upon retroflexion there was a very small sliding 1 to 2 cm hiatal hernia. The scope was then withdrawn into the esophagus. There was no evidence of reflux esophagitis or Robertson's. There was a serrated Z-line and biopsies were taken from the GE junction. The remainder of the esophageal mucosa was normal. Impression: 1. Mild chronic gastritis?rule out H. pylori 2. Very small sliding 1 to 2 cm hiatal hernia Plan: I will follow-up the biopsies. I do feel the patient has intermittent functional dyspepsia. We will discuss additional treatment options.
[2024-08-13 12:12] VITALS: BP 122/71; PULSE 65; RESP 18; TEMP 37.3; O2SAT 94
[2024-08-13 12:22] VITALS: BP 120/77; PULSE 68; RESP 18; O2SAT 95
[2024-08-13 12:32] VITALS: BP 124/82; PULSE 72; RESP 18; O2SAT 98
[2024-08-13 12:48] VITALS: BP 124/71; PULSE 75; RESP 18; O2SAT 98
== END 2024-08-13 12:42 | disposition home or self-care (01) ==
PROVIDERS: PCP Family Medicine; Visit Provider Internal Medicine Gastroenterology
PROC: 0DJ08ZZ Inspection of Upper Intestinal Tract, Via Natural or Artificial Opening Endoscopic (ICD-10-PCS; CPT 43239; principal; 2024-08-13 11:00)
DX: R11.2 Nausea with vomiting, unspecified (principal); R10.84 Generalized abdominal pain; K30 Functional dyspepsia; R68.81 Early satiety; K29.70 Gastritis, unspecified, without bleeding; K44.9 Diaphragmatic hernia without obstruction or gangrene
CPT/HCPCS: 43239; 81025